=== PATIENT | male | born 1980 | race Caucasian/White ===

== ENCOUNTER 2018-01-02 08:12 | Emergency (ER) | payer SELFPAY ==
[~2018-01-02] VITALS: Ht 185.4 cm; Wt 77.6 kg
[2018-01-02 08:26] VITALS: BP 147/83
[2018-01-02] MEDS ORDERED: ASPIRIN 81 MG TABLET CHEW ONE (09:08)
[2018-01-02] MEDS ORDERED: LORazepam 1MG TABLET ONE (09:08)
[2018-01-02] MEDS ORDERED: LORazepam 1MG TABLET PO ONE (09:30)
[2018-01-02] MEDS ORDERED: ASPIRIN 81 MG TABLET CHEW PO ONE (09:30)
[2018-01-02 09:34] LABS: ALBUMIN 3.9 g/dL (3.4-5.0); ANION GAP 7 mmol/L (5-15); CALCIUM 8.8 mg/dL (8.5-10.1); CHLORIDE 108 mmol/L (98-107); CREATININE 1.15 mg/dL (0.7-1.3)
[2018-01-02 09:38] LABS: TROPONIN I < 0.015 ng/mL (0.000-0.045)
[2018-01-02 09:50] LABS: BASOPHILS # (AUTO) 0.04 x10^3/uL (0-0.1); BASOPHILS % (AUTO) 1 % (0-1); EOSINOPHILS # (AUTO) 0.17 x10^3/uL (0-0.4); EOSINOPHILS % (AUTO) 2 % (1-7); LYMPHOCYTES # (AUTO) 1.63 x10^3/uL (1-3.4); LYMPHOCYTES % (AUTO) 20 % (22-44); MD NO; MEAN CORPUSCULAR HEMOGLOBIN 29.5 pg (27.5-34.5); MEAN CORPUSCULAR HGB CONC 33.9 g/dL (33.2-36.2); MEAN CORPUSCULAR VOLUME 87.1 fL (81-97); MEAN PLATELET VOLUME 7.9 fL (7.4-10.4); MONOCYTES % (AUTO) 7 % (2-9); NEUTROPHILS # (AUTO) 5.76 x10^3/uL (1.8-6.8); NEUTROPHILS % (AUTO) 70 % (42-75); PLATELET COUNT 301 x10^3/uL (130-400); RED BLOOD COUNT 4.79 x10^6/uL (4.38-5.82); RED CELL DISTRIBUTION WIDTH 13.8 % (9.4-14.8)
== END 2018-01-02 10:07 | disposition home or self-care (01) ==
LOC: ED 09:50
DX: F41.1 Generalized anxiety disorder (principal); F15.20 Other stimulant dependence, uncomplicated; F17.210 Nicotine dependence, cigarettes, uncomplicated; Z75.9 Unspecified problem related to medical facilities and other health care; Z72.9 Problem related to lifestyle, unspecified
CPT/HCPCS: 36415; 71045; 80048; 82040; 83880; 84484; 85025; 93005; 99285

== ENCOUNTER 2018-01-08 22:18 | Emergency (ER) | payer MEDICAID, OTHER ==
[~2018-01-08] VITALS: Ht 185.4 cm; Wt 81.9 kg
[2018-01-08 22:41] VITALS: BP 117/73
== END 2018-01-08 23:07 | disposition home or self-care (01) ==
LOC: ED 23:03
DX: F41.1 Generalized anxiety disorder (principal); F17.200 Nicotine dependence, unspecified, uncomplicated
CPT/HCPCS: 93005; 99284; Q0177

== ENCOUNTER 2018-03-14 02:47 | Emergency (ER) | payer MEDICAID ==
[~2018-03-14] VITALS: Ht 185.4 cm; Wt 89.0 kg
[2018-03-14 02:53] VITALS: BP 142/88
[2018-03-14] MEDS ORDERED: hydrOXyzine 10MG TABLET PO ONE (03:00)
[2018-03-14] MEDS ORDERED: HYDR50TA13 PO (03:11)
== END 2018-03-14 03:29 | disposition home or self-care (01) ==
LOC: ED 02:51
DX: F41.1 Generalized anxiety disorder (principal); F15.10 Other stimulant abuse, uncomplicated; Z72.9 Problem related to lifestyle, unspecified; F32.9 Major depressive disorder, single episode, unspecified
CPT/HCPCS: 99284

== ENCOUNTER 2018-07-07 23:24 | Emergency (ER) | payer MEDICAID ==
[~2018-07-07] VITALS: Ht 188 cm; Wt 87.2 kg
[~2018-07-07 23:24] MED LIST: HYDR50TA13 PO
[2018-07-07 23:26] VITALS: BP 145/83
--- NOTE | 2018-07-07 23:55 | NUR ---
Patient/Caregiver given discharge instructions and they have confirmed that they understand the instructions. Patient ambulatory with steady gait.
== END 2018-07-07 23:57 | disposition home or self-care (01) ==
LOC: ED 23:51
DX: S01.511A Laceration without foreign body of lip, initial encounter (principal); F32.9 Major depressive disorder, single episode, unspecified; F41.1 Generalized anxiety disorder; F43.10 Post-traumatic stress disorder, unspecified; W27.8XXA Contact with other nonpowered hand tool, initial encounter; Y93.89 Activity, other specified; Y92.89 Other specified places as the place of occurrence of the external cause; Y99.8 Other external cause status
CPT/HCPCS: 99281